=== PATIENT | male | born 1975 | race Caucasian/White ===

== ENCOUNTER 2021-08-01 21:34 | Inpatient (IN) | payer MEDICAID, SELFPAY ==
[2021-08-01 21:46] VITALS: BP 156/81; PULSE 88; RESP 15; TEMP 36.7; O2SAT 96; BMI 24.4
--- NOTE | 2021-08-01 22:10 | ED_ITS ---
HPI - Psych General Chief Complaint: Psychiatric Symptoms Stated Complaint: crisis Time Seen by Provider: 08/01/21 21:46 Source: patient and other (ED nurse) Mode of arrival: EMS Limitations: no limitations History of Present Illness HPI Narrative: 46-year-old male who presents emergency department for evaluation of suicidal ideation and anxiety. The information came from the patient and from the ED nurse who spoke to the [facility] crisis counselor. The patient told me that he was living in a hotel but then has been living in his car for the past 2 days. He states that he is not treated for anxiety but is feeling extremely anxious. He states that he is feeling suicidal without a plan. He states that the suicidal ideation is triggered by his anxiety and his homelessness and his money situation. He states that he was 22 years old he did cut his wrist when he was intoxicated otherwise he has never attempted to harm himself. He does not have a plan to harm self at this time. He does not have a plan to harm others. The patient was evaluated by [facility] as an outpatient however the exam was limited and the patient did not meet clear inpatient criteria however the crisis counselor felt that the patient should be sent to the emergency department for medical clearance and they would re-evaluated min the morning to determine what services would be available to help with his anxiety and his suicidal ideation without a plan. He denied being ill prior to coming to the emergency department. He denied fev er, chills, chest pain, shortness of breath, cough, abdominal pain, nausea, vomiting, myalgias or arthralgias. Patient states that he did receive the 2 shot Moderna COVID-19 vaccine with the 2nd shot in December of 2020. Related Data Home Medications Medication Instructions Recorded Confirmed amlodipine 10 mg tablet 1 tab PO DAILY 08/01/21 08/01/21 buspirone 30 mg tablet 1 tab PO BID 08/01/21 08/01/21 folic acid 1 mg tablet 1 tab PO DAILY 08/01/21 08/01/21 gabapentin 300 mg capsule 1 cap PO TID 08/01/21 08/01/21 hydroxyzine pamoate 50 mg capsule 1 cap PO TID 08/01/21 08/01/21 lurasidone 80 mg tablet (Latuda) 1 tab PO BEDTIME 08/01/21 08/01/21 pantoprazole 40 mg tablet,delayed 1 tab PO BID 08/01/21 08/01/21 release propranolol 10 mg tablet 1 tab PO TID 08/01/21 08/01/21 thiamine mononitrate (vit B1) 100 1 tab PO DAILY 08/01/21 08/01/21 mg tablet (Vitamin B-1 (mononitrate)) Allergies Allergy/AdvReac Type Severity Reaction Status Date / Time No Known Allergies Allergy Verified 08/01/21 21:54 Review of Systems Review of Systems: Yes all other systems are reviewed and are negative [facility], [facility] Past Medical History [facility], [facility] Narrative: Past medical history: Anxiety. Social history: Patient states that he was living in a hotel but is not homeless and is living in his car. He smokes 1/2 pack of cigarettes per day times 30 years. States that he rarely drinks alcohol. He states that over the holiday he did have a marijuana edible but usually does not use drugs. Social History Social History Advance Directives: No Advance Directives Information Provided: No Physical Exam Vital Signs: Vital Signs: Last Vital Signs Temp 98.1 F 08/01/21 21:46 Pulse 88 08/01/21 21:46 Resp 15 08/01/21 21:46 BP 156/81 H 08/01/21 21:46 Pulse Ox 96 08/01/21 21:46 BMI result Body Mass Index 24.4 Const: General: cooperative and no acute distress Orientation/consc iousness: oriented to person and oriented to place Limitations: no limitations HENMT: Head: Yes normal to inspection, Yes normocephalic and Yes atraumatic Ears: external ears normal General nose exam: Normal external nose present Face and sinus: Yes normal facial exam Mouth: Normal oral and palatal mucosa present Throat: Yes posterior oropharynx normal Eyes: General: appearance normal, both eyes and all related structures Pupils: Equal, round and reactive pupils present Neck: Neck: Yes normal visual inspection, Yes no lymphadenopathy, Yes trachea midline and Yes supple Chest: Chest palpation & inspection: normal inspection of the chest and normal palpation of entire chest wall Resp: Effort & Inspection: normal respiratory effort and able to speak in complete sentences Auscultation: clear to auscultation bilaterally Cardio: Rate: regular rate Rhythm: regular rhythm Heart sounds: S1 normal heart sound present, S2 normal heart sound present and no murmurs GI: Inspection: Yes normal to inspection Palpation (GI): Soft to palpation, nontender and no guarding Auscultation: normal bowel sounds : General: Yes no CVA tenderness Back/Spine/Pelvis: Back: no CVA tenderness Skin: General skin exam: no rashes or lesions noted Neuro: General: oriented to person and oriented to place Cranial nerves: Yes CN's II-XII intact bilaterally and Yes Equal, round and reactive pupils present Cognition (Neuro): normal cognition Motor exam (neuro): 5/5 motor strength present throughout Extrem: General: Yes normal to inspection Psych: Appearance: grossly normal Speech and movement: Normal speech and movement present Affect: normal affect Attitude: cooperative Thought process: Normal thought process present Thought content: Normal thought content present Course Course Course Narrative: 46-year-old male with a history of reported anxiety, not on medications, who states that he is suicidal without a plan and is extremely anxious. Patient states that the symptoms were triggered by a change in his social situation where he was living in a hotel and now is living in his car. States that also he is having difficulty with money. These stressors triggered the patient'sanxious admit causing him to have suicidal thoughts. I did order a CBC, CMP, drug screen urine, urinalysis, alcohol level, and a COVID-19 test. I did order Ativan 1 mg every 6 hours as needed for anxiety. 0133: Laboratory evaluation was unremarkable. Urine tox screen was negative. Alcohol level was below detectable limits. COVID-19 was negative. Physician observation started at 0133. Patient placed in physician observation because the patient needed for BHN evaluation. At the time observation was started the patient's vitals were stable, patient is alert and oriented, Neuro: nonfocal, CV RRR, Lungs clear. At the end of my shift, the patient's care was turned over to my colleague, Dr. Rosario. [facility] - Psych Lab Data Result diagrams: 08/01/21 22:31 08/01/21 22:31 Labs: Lab Results 08/01/21 08/01/21 08/01/21 Range/Units 22:25 22:25 22:25 WBC (4.8-10.8) X10*3/uL RBC (4.60-5.80) X10*6/uL Hgb (14.0-18.0) g/dl Hct (42.0-52.0) % MCV (80.0-98.0) fL MCH (27.0-33.0) pg MCHC (31.0-36.0) g/dl RDW (11.0-16.0) % Plt Count (160-400) X10*3/uL MPV (9.4-12.4) fL Immature Gran % (Auto) (0.0-0.4) % Neut % (Auto) (45-73) % Lymph % (Auto) (20-40) % [place] % (Auto) (2-11) % Eos % (Auto) (0-4) % Baso % (Auto) (0-2) % Lymph # (Auto) (1.2-4.9) X10*3/uL [place] # (Auto) (0.1-1.2) X10*3/uL Eos # (Auto) (0.0-0.4) X10*3/uL Baso # (Auto) (0.0-0.2) X10*3/uL Abs Immat Gran (auto) (0.00-0.03) X10*3/uL Absolute Neuts (auto) (2.0-8.3) x10*3/uL Absolute Nucleated RBC (0.0-0.012) X10*3/uL Nucleated RBC % (auto) (0.0-0.2) /100WBC Sodium (135-145) mmol/L Potassium (3.3-5.1) mmol/L Chloride (96-108) mmol/L Carbon Dioxide (22-29) mmol/L Anion Gap (12-20) BUN (9-16) mg/dL Creatinine (0.5-1.4) mg/dL Estim Creat Clear Calc Estimated GFR Random Glucose (60-115) mg/dL Calcium (8.4-10.2) mg/dL Urine Color YELLOW Urine Appearance CLEAR Urine pH 6.0 (5.0-8.0) Ur Specific [place] 1.020 (1.005-1.025) Urine Protein TRACE (NEG-TRACE) MG/DL Urine Glucose (UA) NEG (NEG) MG/DL Urine Ketones 5 (NEG) MG/DL Urine Blood NEG (NEG) Urine Nitrite NEG (NEG) Ur Leukocyte Esterase NEG (NEG) Urine RBC 0 (0) /HPF Urine WBC 0 (0-4) /HPF Ur Squamous Epith Cells TRACE /LPF Urine Bacteria NONE /LPF Urine Mucus TRACE /LPF Urine Opiates Screen Not Detected (Not Detect) Urine Fentanyl Screen Not Detected (Not Detect) Ur Barbiturates Screen Not Detected (Not Detect) Ur Phencyclidine Scrn Not Detected (Not Detect) Ur Amphetamines Screen Not Detected (Not Detect) U Benzodiazepines Scrn Not Detected (Not Detect) Urine Cocaine Screen Not Detected (Not Detect) U Marijuana (THC) Screen Not Detected (Not Detect) Ethyl Alcohol mg/dL COVID-19 ([facility]) Negative (Negative) COVID-19 Clin Com See Note 08/01/21 08/01/21 08/01/21 Range/Units 22:31 22:31 22:31 WBC 11.4 H (4.8-10.8) X10*3/uL RBC 5.44 (4.60-5.80) X10*6/uL Hgb 17.8 (14.0-18.0) g/dl Hct 53.2 H (42.0-52.0) % MCV 97.8 (80.0-98.0) fL MCH 32.7 (27.0-33.0) pg MCHC 33.5 (31.0-36.0) g/dl RDW 12.9 (11.0-16.0) % Plt Count 323 (160-400) X10*3/uL MPV 9.3 L (9.4-12.4) fL Immature Gran % (Auto) 0.5 H (0.0-0.4) % Neut % (Auto) 63.0 (45-73) % Lymph % (Auto) 27.0 (20-40) % [place] % (Auto) 7.4 (2-11) % Eos % (Auto) 1.7 (0-4) % Baso % (Auto) 0.4 (0-2) % Lymph # (Auto) 3.1 (1.2-4.9) X10*3/uL [place] # (Auto) 0.8 (0.1-1.2) X10*3/uL Eos # (Auto) 0.2 (0.0-0.4) X10*3/uL Baso # (Auto) 0.0 (0.0-0.2) X10*3/uL Abs Immat Gran (auto) 0.06 H (0.00-0.03) X10*3/uL Absolute Neuts (auto) 7.2 (2.0-8.3) x10*3/uL Absolute Nucleated RBC 0.000 (0.0-0.012) X10*3/uL Nucleated RBC % (auto) 0.0 (0.0-0.2) /100WBC Sodium 138 (135-145) mmol/L Potassium 4.6 (3.3-5.1) mmol/L Chloride 107 (96-108) mmol/L Carbon Dioxide 20 L (22-29) mmol/L Anion Gap 16 (12-20) BUN 14 (9-16) mg/dL Creatinine 0.85 (0.5-1.4) mg/dL Estim Creat Clear Calc 120.4 Estimated GFR > 60 Random Glucose 127 H (60-115) mg/dL Calcium 9.9 (8.4-10.2) mg/dL Urine Color Urine Appearance Urine pH (5.0-8.0) Ur Specific [place] (1.005-1.025) Urine Protein (NEG-TRACE) MG/DL Urine Glucose (UA) (NEG) MG/DL Urine Ketones (NEG) MG/DL Urine Blood (NEG) Urine Nitrite (NEG) Ur Leukocyte Esterase (NEG) Urine RBC (0) /HPF Urine WBC (0-4) /HPF Ur Squamous Epith Cells /LPF Urine Bacteria /LPF Urine Mucus /LPF Urine Opiates Screen (Not Detect) Urine Fentanyl Screen (Not Detect) Ur Barbiturates Screen (Not Detect) Ur Phencyclidine Scrn (Not Detect) Ur Amphetamines Screen (Not Detect) U Benzodiazepines Scrn (Not Detect) Urine Cocaine Screen (Not Detect) U Marijuana (THC) Screen (Not Detect) Ethyl Alcohol < 10 mg/dL COVID-19 ([facility]) (Negative) COVID-19 Clin Com Discharge Plan Discharge Clinical Impression: Anxiety, Suicidal ideation Patient Disposition: Still a Patient Prescriptions: No Action hydroxyzine pamoate 50 mg capsule 1 cap PO TID RF: 0 propranolol 10 mg tablet 1 tab PO TID RF: 0 amlodipine 10 mg tablet 1 tab PO DAILY RF: 0 pantoprazole 40 mg tablet,delayed release (DR/EC) 1 tab PO BID RF: 0 buspirone 30 mg tablet 1 tab PO BID RF: 0 gabapentin 300 mg capsule 1 cap PO TID RF: 0 folic acid 1 mg tablet 1 tab PO DAILY RF: 0 Latuda 80 mg tablet 1 tab PO BEDTIME RF: 0 thiamine mononitrate (vit B1) [Vitamin B-1 (mononitrate)] 100 mg tablet 1 tab PO DAILY RF: 0
[2021-08-01 22:41] LABS: Basophils Percent Auto 0.4 % (0-2); Eosinophils Absolute Auto 0.2 X10*3/uL (0.0-0.4); Eosinophils Percent Auto 1.7 % (0-4); Hematocrit 53.2 % (42.0-52.0); Hemoglobin 17.8 g/dl (14.0-18.0); Imm Gran Abs Auto 0.06 X10*3/uL (0.00-0.03); Imm Gran Pct Auto 0.5 % (0.0-0.4); Lymphocytes Absolute Auto 3.1 X10*3/uL (1.2-4.9); MANUAL DIFF FLAG NO; Mean Corpuscular HGB Conc 33.5 g/dl (31.0-36.0); Mean Corpuscular Hemoglobin 32.7 pg (27.0-33.0); Mean Corpuscular Volume 97.8 fL (80.0-98.0); Mean Platelet Volume 9.3 fL (9.4-12.4); Monocytes Absolute Auto 0.8 X10*3/uL (0.1-1.2); Monocytes Percent Auto 7.4 % (2-11); Neutrophils Absolute Auto 7.2 x10*3/uL (2.0-8.3); Platelet Count 323 X10*3/uL (160-400); Red Blood Count 5.44 X10*6/uL (4.60-5.80); Red Cell Distribution Width 12.9 % (11.0-16.0); White Blood Count 11.4 X10*3/uL (4.8-10.8)
[2021-08-01 22:44] LABS: Appearance Urine CLEAR; Color Urine YELLOW; Glucose Urine UA NEG (NEG); Leukocyte Esterase Urine NEG (NEG); Nitrite Urine NEG (NEG); Urine Blood NEG (NEG); Urine Ketones 5 MG/DL (NEG); Urine Protein TRACE MG/DL (NEG-TRACE)
[2021-08-01 22:55] LABS: Ethanol < 10 mg/dL
[2021-08-01 22:56] LABS: Anion Gap 16 (12-20); Blood Urea Nitrogen 14 mg/dL (9-16); Calcium 9.9 mg/dL (8.4-10.2); Carbon Dioxide 20 mmol/L (22-29); Chloride 107 mmol/L (96-108); Creatinine Clr Calc Pharmacy 120.4; Estimated Glomerular Filt Rate > 60; Glucose Random 127 mg/dL (60-115); Potassium 4.6 mmol/L (3.3-5.1); Sodium 138 mmol/L (135-145)
[2021-08-01 23:07] LABS: COVID-19 Test Negative (Negative)
[2021-08-01 23:08] LABS: Amphetamine Screen Urine Not Detected (Not Detect); Barbiturates, Urine Not Detected (Not Detect); Benzodiazepines Screen Urine Not Detected (Not Detect); Cannabinoid Screen Urine Not Detected (Not Detect); Cocaine Screen Urine Not Detected (Not Detect); Fentanyl, urine Not Detected (Not Detect); Opiate Screen Urine Not Detected (Not Detect); Phencyclidine Screen Urine Not Detected (Not Detect)
[2021-08-01 23:12] LABS: Mucus Urine TRACE /LPF; RBC Urine 0 /HPF (0); Squamous Epithelial Cell Urine TRACE /LPF; WBC Urine 0 /HPF (0-4)
[2021-08-02 03:22] VITALS: BP 132/88; PULSE 82; RESP 17; TEMP 36.6; O2SAT 96
--- NOTE | 2021-08-02 05:21 | PC.NURSE ---
Patient slept through the night, no distress observed/reported, patient communicated well with [facility] clinician, denied any psychiatric problem, patient reported his medication was stopped by his psychiatrist, his looking for help and support to get back to his life, [facility] cleared him of crises, recommended case management consult, provider and patient in agreement with plan, case management consult ordered, VSS, will continue to monitor.
[2021-08-02] MEDS: LORazepam 1 MG TABLET PO ×2 (06:16→21:37)
--- NOTE | 2021-08-02 06:30 | PC.NURSE ---
Patient deposition was changed by N, patient is now on section 12 inpatient bed search, patient and provider aware.
--- NOTE | 2021-08-02 07:10 | PC.NURSE ---
patient appears to remain asleep at present, respriations are even and unalbored patient appears in no distress
[2021-08-02 14:52] LABS: COVID-19 Test Negative (Negative)
--- NOTE | 2021-08-02 22:18 | ECG_ITS ---
Test Reason : MED CLEARANCE Blood Pressure : / mmHG Vent. Rate : 078 BPM Atrial Rate : 078 BPM P-R Int : 176 ms QRS Dur : 094 ms QT Int : 366 ms P-R-T Axes : 070 000 042 degrees QTc Int : 417 ms Normal sinus rhythm Septal infarct , age undetermined Abnormal ECG No previous ECGs available Referred By: Paco Rose Electronically Signed By:DAIN GARRISON MD
[2021-08-03 01:25] VITALS: BP 129/66; PULSE 79; TEMP 36.4; O2SAT 97
[2021-08-03 01:26] VITALS: BMI 25.2
[2021-08-03] MEDS: traZODone HCL 50 MG TABLET PO ×2 (02:20→20:58)
--- NOTE | 2021-08-03 02:37 | PC.ADMIT ---
THIS IS THE FIRST M3 ADMISSION FOR THIS 46 YEAR OLD MALE. LEGAL:CV. DX: [facility]. PATIENT WAS A REFERRAL BY N [facility]IA [facility] ER. NURSE TO NURSE AND COLLATERAL INFORMATION OBTAINED PRIOR TO ADMISSION. PATIENT REPORTS HISTORY OF PREVIOUS HOSPITALIZATIONS. IDENTIFIES SELF HAVING AN ANXIETY D/O. DENIES CURRENT SI REPORTING FEELING SAFE ON UNIT. MAJOR STRESS ARE HOMELESSNESS, RECENT CHANGE IN RELATIONSHIP STATUS AND LOSS OF JOB IN MAY. PATIENT HAS BEEN LIVING IN HIS CAR BUT NOW HAS NO MONEY FOR GAS OR FOR HOUSING. DENIES DRUG OR ALCOHOL USE. HAIR NEGATIVE. MEDICAL ISSUES R/O HTN, GERD. MEDICATION RECONCILIATION COMPLETED IN THE EMERGENCY ROOM. HAS NOT BEEN TAKING MEDICATIONS. TREATMENT PLAN INITIATED. ORIENTED TO UNIT.
[2021-08-03 08:19] VITALS: BP 119/79; PULSE 76; RESP 16; TEMP 36.4; O2SAT 98
[2021-08-03] MEDS: busPIRone HCl 10 MG TABLET 30 MG PO ×2 (08:39→20:52)
[2021-08-03] MEDS: hydrOXYzine HCL 50 MG TABLET PO (08:39)
[2021-08-03] MEDS: Omeprazole 20 MG CAPSULE.DR PO ×2 (08:40→20:52)
[2021-08-03] MEDS: Thiamine HCL 100 MG TABLET PO (08:40)
[2021-08-03] MEDS: Propranolol HCL 10 MG TABLET PO ×3 (08:40→20:52)
[2021-08-03] MEDS: Folic Acid 1 MG TABLET PO (08:40)
[2021-08-03] MEDS: amLODIPine Besylate 10 MG TABLET PO (08:41)
[2021-08-03] MEDS: LORazepam 1 MG TABLET PO ×2 (08:52→17:19)
[2021-08-03 15:10] VITALS: BP 125/78; PULSE 86; RESP 17; TEMP 36.8; O2SAT 94
--- NOTE | 2021-08-03 16:59 | P.HPPS_ITS ---
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 he had been renting a room in a house until the end of may, but he left after realizing that his housemates were drug addicts. he stayed at his GF's house for several weeks until the final week of june, when he stayed in a hotel. he was running out of money so left the hotel and started living out of his [place] [employer] [place]. he then ran out of money and gas and his anxiety spiked. he started having SI and so came to the ED. he does not feel he is clinically depressed; he feels his mood and anxiety states recently are reactive to his life circumstance, and once he has some housing and money he will feel better. he states he has been on many SSRIs and SNRIs and they do not help him. he feels the buspar does help him and he would like to continue taking it. he is not interested in other psych medication at the moment. he states that how we can help him here is to give him somewhere to think for a couple days, with heat. he states he is in need of assistance. suggests would be able to offer him advice on that topic. denies ever having been to a homeless senior living and denies any h/o homelessness. MD and pt agree to continue current medications and investigate dispo options. Medical Evaluation Reviewed: Yes PMF Narrative: denies Family History: denies Social History: see HPI for housing status. 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 Substance History: tobacco - 1 ppd cannabis - none cocaine - none alcohol - occasional denies the use of other substances of abuse Trauma History: describes volatile and unpredictable parents, denies he has PTSD but does link his childhood to his chronic severe anxiety. Diagnostics Vital Signs (24Hr): Vital Signs - 24 hr 08/03/21 01:25 08/03/21 08:19 08/03/21 15:10 Temperature 97.5 F 97.5 F 98.3 F Pulse Rate 79 76 86 Respiratory Rate 16 17 Blood Pressure 129/66 119/79 125/78 Pulse Oximetry 97 98 94 BMI result Body Mass Index 25.2 Labs Results: 08/01/21 22:31 08/01/21 22:31 Labs: Laboratory Results - last 48 hr 08/01/21 08/01/21 08/01/21 22:25 22:25 22:25 WBC RBC Hgb Hct MCV MCH MCHC RDW Plt Count MPV Immature Gran % (Auto) Neut % (Auto) Lymph % (Auto) [place] % (Auto) Eos % (Auto) Baso % (Auto) Lymph # (Auto) [place] # (Auto) Eos # (Auto) Baso # (Auto) Abs Immat Gran (auto) Absolute Neuts (auto) Absolute Nucleated RBC Nucleated RBC % (auto) Sodium Potassium Chloride Carbon Dioxide Anion Gap BUN Creatinine Estim Creat Clear Calc Estimated GFR Random Glucose Calcium Urine Color YELLOW Urine Appearance CLEAR Urine pH 6.0 Ur Specific [place] 1.020 Urine Protein TRACE Urine Glucose (UA) NEG Urine Ketones 5 Urine Blood NEG Urine Nitrite NEG Ur Leukocyte Esterase NEG Urine RBC 0 Urine WBC 0 Ur Squamous Epith Cells TRACE Urine Bacteria NONE Urine Mucus TRACE Urine Opiates Screen Not Detected Urine Fentanyl Screen Not Detected Ur Barbiturates Screen Not Detected Ur Phencyclidine Scrn Not Detected Ur Amphetamines Screen Not Detected U Benzodiazepines Scrn Not Detected Urine Cocaine Screen Not Detected U Marijuana (THC) Screen Not Detected Ethyl Alcohol COVID-19 ([facility]) Negative COVID-19 Clin Com See Note 08/01/21 08/01/21 08/01/21 22:31 22:31 22:31 WBC 11.4 H RBC 5.44 Hgb 17.8 Hct 53.2 H MCV 97.8 MCH 32.7 MCHC 33.5 RDW 12.9 Plt Count 323 MPV 9.3 L Immature Gran % (Auto) 0.5 H Neut % (Auto) 63.0 Lymph % (Auto) 27.0 [place] % (Auto) 7.4 Eos % (Auto) 1.7 Baso % (Auto) 0.4 Lymph # (Auto) 3.1 [place] # (Auto) 0.8 Eos # (Auto) 0.2 Baso # (Auto) 0.0 Abs Immat Gran (auto) 0.06 H Absolute Neuts (auto) 7.2 Absolute Nucleated RBC 0.000 Nucleated RBC % (auto) 0.0 Sodium 138 Potassium 4.6 Chloride 107 Carbon Dioxide 20 L Anion Gap 16 BUN 14 Creatinine 0.85 Estim Creat Clear Calc 120.4 Estimated GFR > 60 Random Glucose 127 H Calcium 9.9 Urine Color Urine Appearance Urine pH Ur Specific [place] Urine Protein Urine Glucose (UA) Urine Ketones Urine Blood Urine Nitrite Ur Leukocyte Esterase Urine RBC Urine WBC Ur Squamous Epith Cells Urine Bacteria Urine Mucus Urine Opiates Screen Urine Fentanyl Screen Ur Barbiturates Screen Ur Phencyclidine Scrn Ur Amphetamines Screen U Benzodiazepines Scrn Urine Cocaine Screen U Marijuana (THC) Screen Ethyl Alcohol < 10 COVID-19 ([facility]) COVID-19 Clin Com 08/02/21 14:17 WBC RBC Hgb Hct MCV MCH MCHC RDW Plt Count MPV Immature Gran % (Auto) Neut % (Auto) Lymph % (Auto) [place] % (Auto) Eos % (Auto) Baso % (Auto) Lymph # (Auto) [place] # (Auto) Eos # (Auto) Baso # (Auto) Abs Immat Gran (auto) Absolute Neuts (auto) Absolute Nucleated RBC Nucleated RBC % (auto) Sodium Potassium Chloride Carbon Dioxide Anion Gap BUN Creatinine Estim Creat Clear Calc Estimated GFR Random Glucose Calcium Urine Color Urine Appearance Urine pH Ur Specific [place] Urine Protein Urine Glucose (UA) Urine Ketones Urine Blood Urine Nitrite Ur Leukocyte Esterase Urine RBC Urine WBC Ur Squamous Epith Cells Urine Bacteria Urine Mucus Urine Opiates Screen Urine Fentanyl Screen Ur Barbiturates Screen Ur Phencyclidine Scrn Ur Amphetamines Screen U Benzodiazepines Scrn Urine Cocaine Screen U Marijuana (THC) Screen Ethyl Alcohol COVID-19 ([facility]) Negative COVID-19 Clin Com See Note Meds/Allergies Meds Home Medications Acetaminophen (Acetaminophen 325 Mg Tablet) 650 mg PO Q6H PRN PRN Reason: Headache/Pain Mild Scale (1-3) Al Hydroxide/Mg Hydroxide (Magnesium Hydrox/Alum Hydrox 30 Ml Oral.Susp) 30 ml PO Q6H PRN PRN Reason: Heartburn/Nausea Amlodipine Besylate (Amlodipine Besylate 10 Mg Tablet) 10 mg PO DAILY [facility]; Protocol Last Admin: 08/03/21 08:41 Dose: 10 mg Documented by: Buspirone HCl (Buspirone Hcl 10 Mg Tablet) 30 mg PO BID [facility] Last Admin: 08/03/21 08:39 Dose: 30 mg Documented by: Folic Acid (Folic Acid 1 Mg Tablet) 1 mg PO DAILY [facility] Last Admin: 08/03/21 08:40 Dose: 1 mg Documented by: Lorazepam (Lorazepam 1 Mg Tablet) 1 mg PO Q6H PRN PRN Reason: anxiety Last Admin: 08/03/21 08:52 Dose: 1 mg Documented by: Magnesium Hydroxide (Milk Of Magnesia 30 Ml Oral.Susp) 30 ml PO DAILY PRN PRN Reason: Constipation Omeprazole (Omeprazole 20 Mg Capsule.Dr) 20 mg PO BID [facility] Last Admin: 08/03/21 08:40 Dose: 20 mg Documented by: Propranolol HCl (Propranolol Hcl 10 Mg Tablet) 10 mg PO TID [facility]; Protocol Last Admin: 08/03/21 15:11 Dose: 10 mg Documented by: Thiamine HCl (Thiamine Hcl 100 Mg Tablet) 100 mg PO DAILY [facility] Last Admin: 08/03/21 08:40 Dose: 100 mg Documented by: Trazodone HCl (Trazodone Hcl 50 Mg Tablet) 50 mg PO BEDTIME PRN PRN Reason: Insomnia Last Admin: 08/03/21 02:20 Dose: 50 mg Documented by: Allergies Allergies Allergy/AdvReac Type Severity Reaction Status Date / Time No Known Allergies Allergy Verified 08/01/21 21:54 Mental Status Exam Mental Status Exam Narrative: appropriately dressed and groomed, cooperative, no PMA/PMR. speech nml in rate, loudness, tone. incr amount and decr latency. thoughts digressive but otherwise linear and logical. affect full range, normo-intense, non-labile. mood neutral. no SI/HI/AVH. Assessment & Plan Assessment & Plan (1) Suicidal ideation: Status: Acute Code(s): R45.851 - Suicidal ideations Assessment and Plan: resolved with admission (2) Anxiety: Status: Acute Code(s): F41.9 - Anxiety disorder, unspecified Assessment and Plan: NERIS Dx. ongoing exacerbation whilst facing homelessness. continue buspar 30 BID. declining other psychopharm. Assessment and Plan: holding environment. research services for pt. discharge likely to senior living soon. Reason for continued inpatient stay Substantial Risk for: inability to function and rapid decompensation
[2021-08-03] MEDS: Acetaminophen 325 MG TABLET 650 MG PO (19:11)
[2021-08-03 20:47] VITALS: BP 130/76; PULSE 78; RESP 16; TEMP 37.1; O2SAT 95
[2021-08-04] MEDS: LORazepam 1 MG TABLET PO ×3 (04:19→17:19)
[2021-08-04] MEDS: Thiamine HCL 100 MG TABLET PO (08:24)
[2021-08-04] MEDS: Propranolol HCL 10 MG TABLET PO ×3 (08:24→22:41)
[2021-08-04] MEDS: amLODIPine Besylate 10 MG TABLET PO (08:24)
[2021-08-04] MEDS: Acetaminophen 325 MG TABLET 650 MG PO (08:24)
[2021-08-04] MEDS: busPIRone HCl 10 MG TABLET 30 MG PO ×2 (08:24→22:40)
[2021-08-04] MEDS: Folic Acid 1 MG TABLET PO (08:24)
[2021-08-04] MEDS: Omeprazole 20 MG CAPSULE.DR PO ×2 (08:25→22:41)
[2021-08-04] MEDS: Nicotine Polacrilex 2 MG GUM 4 MG BUCCAL ×3 (09:57→18:16)
--- NOTE | 2021-08-04 14:00 | P.PNPSI_ITS ---
Subjective Subjective Date of Service: 08/04/21 Reason For Visit: Suicidal ideation Interim History: pt reports he is eating and sleeping well. mood good, no SI. states he has been in touch with his GF since being here, and his status with her is his chief concern now. he is content to continue on his current regimen of buspar. informed he will need to discharge early next week to a senior living. per staff, attended one group yesterday. dep/anx 11/05. no SI/HI/AVH. anoon in bedroom. slept well overnight. Mental Status Exam Mental Status Exam Narrative: appropriately dressed and groomed, cooperative, no PMA/PMR. speech nml in rate, loudness, tone. incr amount and decr latency. thoughts digressive but otherwise linear and logical. affect full range, normo-intense, non-labile. mood good. no SI. no HI/AVH expressed. Diagnostics Vital Signs (24Hr): Vital Signs - 24 hr 08/03/21 15:10 08/03/21 20:47 Temperature 98.3 F 98.7 F Pulse Rate 86 78 Respiratory Rate 17 16 Blood Pressure 125/78 130/76 Pulse Oximetry 94 95 BMI result Body Mass Index 25.2 Labs Results: 08/01/21 22:31 08/01/21 22:31 Labs: Laboratory Results - last 48 hr 08/02/21 14:17 COVID-19 ([facility]) Negative COVID-19 Clin Com See Note Medications Medications Current Medications Acetaminophen (Acetaminophen 325 Mg Tablet) 650 mg PO Q6H PRN PRN Reason: Headache/Pain Mild Scale (1-3) Last Admin: 08/04/21 08:24 Dose: 650 mg Documented by: Al Hydroxide/Mg Hydroxide (Magnesium Hydrox/Alum Hydrox 30 Ml Oral.Susp) 30 ml PO Q6H PRN PRN Reason: Heartburn/Nausea Amlodipine Besylate (Amlodipine Besylate 10 Mg Tablet) 10 mg PO DAILY [facility]; Pro tocol Last Admin: 08/04/21 08:24 Dose: 10 mg Documented by: Buspirone HCl (Buspirone Hcl 10 Mg Tablet) 30 mg PO BID [facility] Last Admin: 08/04/21 08:24 Dose: 30 mg Documented by: Folic Acid (Folic Acid 1 Mg Tablet) 1 mg PO DAILY [facility] Last Admin: 01/07/22 08:24 Dose: 1 mg Documented by: Lorazepam (Lorazepam 1 Mg Tablet) 1 mg PO Q6H PRN PRN Reason: anxiety Last Admin: 08/04/21 11:04 Dose: 1 mg Documented by: Magnesium Hydroxide (Milk Of Magnesia 30 Ml Oral.Susp) 30 ml PO DAILY PRN PRN Reason: Constipation Nicotine Polacrilex (Nicotine Polacrilex 2 Mg Gum) 4 mg BUCCAL Q1H PRN PRN Reason: Nicotine Cravings Last Admin: 08/04/21 13:28 Dose: 4 mg Documented by: Omeprazole (Omeprazole 20 Mg Capsule.Dr) 20 mg PO BID [facility] Last Admin: 08/04/21 08:25 Dose: 20 mg Documented by: Propranolol HCl (Propranolol Hcl 10 Mg Tablet) 10 mg PO TID [facility]; Protocol Last Admin: 08/04/21 08:24 Dose: 10 mg Documented by: Thiamine HCl (Thiamine Hcl 100 Mg Tablet) 100 mg PO DAILY [facility] Last Admin: 08/04/21 08:24 Dose: 100 mg Documented by: Trazodone HCl (Trazodone Hcl 50 Mg Tablet) 50 mg PO BEDTIME PRN PRN Reason: Insomnia Last Admin: 08/03/21 20:58 Dose: 50 mg Documented by: Allergies Allergies Allergy/AdvReac Type Severity Reaction Status Date / Time No Known Allergies Allergy Verified 08/01/21 21:54 Assessment & Plan Assessment & Plan (1) Suicidal ideation: Status: Acute Code(s): R45.851 - Suicidal ideations Assessment and Plan: resolved with admission (2) Anxiety: Status: Acute Code(s): F41.9 - Anxiety disorder, unspecified Assessment and Plan: NERIS Dx. ongoing exacerbation whilst facing homelessness. continue buspar 30 BID. declining other psychopharm. Assessment and Plan: holding environment. research services for pt. discharge likely to senior living versus GF's home early next week I spent __20____ minutes with the patient and/or on the patient floor today, greater than?50% of which was spent counseling/coordinating care. Reason for contiued inpatient stay Substantial Risk for: harm to self and rapid decompensation
[2021-08-04 15:03] VITALS: BP 138/87; PULSE 90; RESP 16
[2021-08-04 22:35] VITALS: BP 129/71; PULSE 76; RESP 20; TEMP 36.2; O2SAT 96
[2021-08-04] MEDS: traZODone HCL 50 MG TABLET PO (22:47)
[2021-08-05] MEDS: Nicotine Polacrilex 2 MG GUM 4 MG BUCCAL ×4 (07:54→20:23)
[2021-08-05] MEDS: LORazepam 1 MG TABLET PO ×3 (07:54→20:23)
[2021-08-05 08:00] VITALS: BP 142/85; PULSE 78; RESP 18; TEMP 36.3; O2SAT 99
[2021-08-05] MEDS: amLODIPine Besylate 10 MG TABLET PO (08:07)
[2021-08-05] MEDS: Omeprazole 20 MG CAPSULE.DR PO ×2 (08:07→20:23)
[2021-08-05] MEDS: busPIRone HCl 10 MG TABLET 30 MG PO ×2 (08:08→20:23)
[2021-08-05] MEDS: Propranolol HCL 10 MG TABLET PO ×2 (08:08→15:19)
[2021-08-05] MEDS: Folic Acid 1 MG TABLET PO (08:08)
[2021-08-05] MEDS: Thiamine HCL 100 MG TABLET PO (08:08)
[2021-08-05 15:10] VITALS: BP 167/96; PULSE 81; RESP 18; O2SAT 99
[2021-08-05 16:26] VITALS: BP 169/101; PULSE 82; O2SAT 100
--- NOTE | 2021-08-05 17:27 | HO.PSYCHPN ---
Subjective Subjective Date of Service: 08/05/21 Reason For Visit: Suicidal ideation Interim History: pt reports he is feeling well, he got a shave in and trimmed his nails. sleeping and eating well, mood good. i feel very positive. has not spoken with his GF today. per staff, anxious, visible. attending groups, sleeping well. pleasant calm. Mental Status Exam Mental Status Exam Narrative: appropriately dressed and groomed, cooperative, no PMA/PMR. speech nml in rate, loudness, tone. incr amount and decr latency. thoughts digressive but otherwise linear and logical. affect full range, normo-intense, non-labile. mood good. no SI. no HI/AVH expressed. Diagnostics Vital Signs (24Hr): Vital Signs - 24 hr 08/04/21 22:35 08/05/21 08:00 08/05/21 15:10 Temperature 97.1 F 97.4 F Pulse Rate 76 78 81 Respiratory Rate 20 18 18 Blood Pressure 129/71 142/85 H 167/96 H Pulse Oximetry 96 99 99 08/05/21 16:26 Temperature Pulse Rate 82 Respiratory Rate Blood Pressure 169/101 H Pulse Oximetry 100 BMI result Body Mass Index 25.2 Labs Results: 08/01/21 22:31 08/01/21 22:31 Medications Medications Current Medications Acetaminophen (Acetaminophen 325 Mg Tablet) 650 mg PO Q6H PRN PRN Reason: Headache/Pain Mild Scale (1-3) Last Admin: 08/04/21 08:24 Dose: 650 mg Documented by: Al Hydroxide/Mg Hydroxide (Magnesium Hydrox/Alum Hydrox 30 Ml Oral.Susp) 30 ml PO Q6H PRN PRN Reason: Heartburn/Nausea Amlodipine Besylate (Amlodipine Besylate 10 Mg Tablet) 10 mg PO DAILY [facility]; Protocol Last Admin: 08/05/21 08:07 Dose: 10 mg Documented by: Buspirone HCl (Buspirone Hcl 10 Mg Tablet) 30 mg PO BID [facility] Last Admin: 08/05/21 08:08 Dose: 30 mg Documented by: Folic Acid (Folic Acid 1 Mg Tablet) 1 mg PO DAILY [facility] Last Admin: 08/05/21 08:08 Dose: 1 mg Documented by: Lorazepam (Lorazepam 1 Mg Tablet) 1 mg PO Q6H PRN PRN Reason: anxiety Last Admin: 08/05/21 13:58 Dose: 1 mg Documented by: Magnesium Hydroxide (Milk Of Magnesia 30 Ml Oral.Susp) 30 ml PO DAILY PRN PRN Reason: Constipation Nicotine Polacrilex (Nicotine Polacrilex 2 Mg Gum) 4 mg BUCCAL Q1H PRN PRN Reason: Nicotine Cravings Last Admin: 08/05/21 13:58 Dose: 4 mg Documented by: Omeprazole (Omeprazole 20 Mg Capsule.Dr) 20 mg PO BID [facility] Last Admin: 08/05/21 08:07 Dose: 20 mg Documented by: Propranolol HCl (Propranolol Hcl 10 Mg Tablet) 10 mg PO TID [facility]; Protocol Last Admin: 08/05/21 15:19 Dose: 10 mg Documented by: Thiamine HCl (Thiamine Hcl 100 Mg Tablet) 100 mg PO DAILY [facility] Last Admin: 08/05/21 08:08 Dose: 100 mg Documented by: Trazodone HCl (Trazodone Hcl 50 Mg Tablet) 50 mg PO BEDTIME PRN PRN Reason: Insomnia Last Admin: 08/04/21 22:47 Dose: 50 mg Documented by: Allergies Allergies Allergy/AdvReac Type Severity Reaction Status Date / Time No Known Allergies Allergy Verified 08/01/21 21:54 Assessment & Plan Assessment & Plan (1) Suicidal ideation: Status: Acute Code(s): R45.851 - Suicidal ideations Assessment and Plan: resolved with admission (2) Anxiety: Status: Acute Code(s): F41.9 - Anxiety disorder, unspecified Assessment and Plan: NERIS Dx. ongoing exacerbation whilst facing homelessness. continue buspar 30 BID. declining other psychopharm. Assessment and Plan: holding environment. research services for pt. discharge likely to prison versus GF's home early next week I spent minutes with the patient and/or on the patient floor today, greater than?50% of which was spent counseling/coordinating care. Reason for contiued inpatient stay Substantial Risk for: harm to self
[2021-08-05 20:15] VITALS: BP 165/100; PULSE 68; RESP 20; TEMP 36.4; O2SAT 98
[2021-08-05] MEDS: traZODone HCL 50 MG TABLET PO (20:23)
[2021-08-05] MEDS: Propranolol HCL LA 80 MG CAP.SA.24H PO (20:23)
[2021-08-06 05:00] VITALS: BP 129/74; PULSE 67; RESP 17
[2021-08-06] MEDS: LORazepam 1 MG TABLET PO ×3 (05:10→17:12)
[2021-08-06] MEDS: Nicotine Polacrilex 2 MG GUM 4 MG BUCCAL ×5 (05:12→20:05)
[2021-08-06 08:31] VITALS: BP 144/77; PULSE 66; RESP 16; TEMP 36.4; O2SAT 98
[2021-08-06] MEDS: Omeprazole 20 MG CAPSULE.DR PO ×2 (08:44→20:04)
[2021-08-06] MEDS: busPIRone HCl 10 MG TABLET 30 MG PO ×2 (08:44→20:04)
[2021-08-06] MEDS: Thiamine HCL 100 MG TABLET PO (08:44)
[2021-08-06] MEDS: Folic Acid 1 MG TABLET PO (08:44)
[2021-08-06] MEDS: amLODIPine Besylate 10 MG TABLET PO (08:45)
[2021-08-06] MEDS: Propranolol HCL LA 80 MG CAP.SA.24H PO (08:45)
--- NOTE | 2021-08-06 17:02 | P.PNPSI_ITS ---
Subjective Subjective Date of Service: 08/06/21 Reason For Visit: Suicidal ideation Interim History: feeling well, no questions or complaints. MD suggested he should think hard about where he might go after discharge, which will be happening in the next couple of days. per staff, started on inderal LA, BP improved. irritable this morning, got into verbal conflict with peer. Mental Status Exam Mental Status Exam Narrative: appropriately dressed and groomed, cooperative, no PMA/PMR. speech nml in rate, loudness, tone. incr amount and decr latency. thoughts digressive but otherwise linear and logical. affect full range, normo-intense, non-labile. mood good. no SI. no HI/AVH expressed. Diagnostics Vital Signs (24Hr): Vital Signs - 24 hr 08/05/21 20:15 08/06/21 05:00 08/06/21 08:31 Temperature 97.5 F 97.6 F Pulse Rate 68 67 66 Respiratory Rate 20 17 16 Blood Pressure 165/100 H 129/74 144/77 H Pulse Oximetry 98 98 BMI result Body Mass Index 25.2 Labs Results: 08/01/21 22:31 08/01/21 22:31 Medications Medications Current Medications Acetaminophen (Acetaminophen 325 Mg Tablet) 650 mg PO Q6H PRN PRN Reason: Headache/Pain Mild Scale (1-3) Last Admin: 08/04/21 08:24 Dose: 650 mg Documented by: Al Hydroxide/Mg Hydroxide (Magnesium Hydrox/Alum Hydrox 30 Ml Oral.Susp) 30 ml PO Q6H PRN PRN Reason: Heartburn/Nausea Amlodipine Besylate (Amlodipine Besylate 10 Mg Tablet) 10 mg PO DAILY [facility]; Protocol Last Admin: 08/06/21 08:45 Dose: 10 mg Documented by: Buspirone HCl (Buspirone Hcl 10 Mg Tablet) 30 mg PO BID [facility] Last Admin: 08/06/21 08:44 Dose: 30 mg Documented by: Folic Acid (Folic Acid 1 Mg Tablet) 1 mg PO DAILY [facility] Last Admin: 08/06/21 08:44 Dose: 1 mg Documented by: Lorazepam (Lorazepam 1 Mg Tablet) 1 mg PO Q6H PRN PRN Reason: anxiety Last Admin: 08/06/21 11:01 Dose: 1 mg Documented by: Magnesium Hydroxide (Milk Of Magnesia 30 Ml Oral.Susp) 30 ml PO DAILY PRN PRN Reason: Constipation Nicotine Polacrilex (Nicotine Polacrilex 2 Mg Gum) 4 mg BUCCAL Q1H PRN PRN Reason: Nicotine Cravings Last Admin: 08/06/21 16:54 Dose: 4 mg Documented by: Omeprazole (Omeprazole 20 Mg Capsule.Dr) 20 mg PO BID [facility] Last Admin: 08/06/21 08:44 Dose: 20 mg Documented by: Propranolol HCl (Propranolol Hcl La 80 Mg Cap.Sa.24h) 80 mg PO DAILY [facility]; Protocol Last Admin: 08/06/21 08:45 Dose: 80 mg Documented by: Thiamine HCl (Thiamine Hcl 100 Mg Tablet) 100 mg PO DAILY [facility] Last Admin: 08/06/21 08:44 Dose: 100 mg Documented by: Trazodone HCl (Trazodone Hcl 50 Mg Tablet) 50 mg PO BEDTIME PRN PRN Reason: Insomnia Last Admin: 08/05/21 20:23 Dose: 50 mg Documented by: Allergies Allergies Allergy/AdvReac Type Severity Reaction Status Date / Time No Known Allergies Allergy Verified 08/01/21 21:54 Assessment & Plan Assessment & Plan (1) Suicidal ideation: Status: Acute Code(s): R45.851 - Suicidal ideations Assessment and Plan: resolved with admission (2) Anxiety: Status: Acute Code(s): F41.9 - Anxiety disorder, unspecified Assessment and Plan: NERIS Dx. ongoing exacerbation whilst facing homelessness. continue buspar 30 BID. declining other psychopharm. Assessment and Plan: holding environment. research services for pt. discharge likely to group home versus GF's home early next week I spent minutes with the patient and/or on the patient floor today, greater than?50% of which was spent counseling/coordinating care. Reason for contiued inpatient stay Substantial Risk for: rapid decompensation
[2021-08-06 20:03] VITALS: BP 123/68; PULSE 75; RESP 18; TEMP 36.8; O2SAT 96
[2021-08-06] MEDS: traZODone HCL 50 MG TABLET PO (20:05)
[2021-08-07] MEDS: Nicotine Polacrilex 2 MG GUM 4 MG BUCCAL ×3 (03:53→12:30)
[2021-08-07 08:16] VITALS: BP 143/95; PULSE 70; RESP 17; TEMP 36.8; O2SAT 97
[2021-08-07] MEDS: Propranolol HCL LA 80 MG CAP.SA.24H PO (08:30)
[2021-08-07] MEDS: busPIRone HCl 10 MG TABLET 30 MG PO (08:30)
[2021-08-07] MEDS: amLODIPine Besylate 10 MG TABLET PO (08:30)
[2021-08-07] MEDS: Thiamine HCL 100 MG TABLET PO (08:31)
[2021-08-07] MEDS: Folic Acid 1 MG TABLET PO (08:31)
[2021-08-07] MEDS: Omeprazole 20 MG CAPSULE.DR PO (08:31)
--- NOTE | 2021-08-07 11:26 | P.DS_ITS ---
DS: Providers Provider Date of Service: 08/07/21 Date of admission: 08/03/21 00:27 Primary care physician: Nonstaff Physician Consults: 08/01/21 21:57 BHN [Consult to Crisis] Stat Reason for consultation: si DS: Diagnosis Discharge Diagnosis (1) Suicidal ideation: Status: Acute (2) Anxiety: Status: Acute DS: Medications Discharge Medications Home Medications: Previous Rx's Medication Instructions Recorded amlodipine 10 mg tablet 1 tab PO DAILY 30 Days #30 tab 08/07/21 buspirone 30 mg tablet 1 tab PO BID 30 Days #60 tab 08/07/21 folic acid 1 mg tablet 1 tab PO DAILY 30 Days #30 tab 08/07/21 nicotine (polacrilex) 2 mg gum 4 mg BUCCAL Q1H PRN 30 Days #100 ea 08/07/21 pantoprazole 40 mg tablet,delayed 1 tab PO BID 30 Days #60 tab 08/07/21 release propranolol 80 mg capsule,24 80 mg PO DAILY 30 Days #30 cap 08/07/21 hr,extended release thiamine mononitrate (vit B1) 100 1 tab PO DAILY 30 Days #30 tab 08/07/21 mg tablet (Vitamin B-1 (mononitrate)) Mental Status Exam Mental Status Exam Narrative: appropriately dressed and groomed, cooperative, no PMA/PMR. speech nml in rate, loudness, tone. incr amount and decr latency. thoughts digressive but otherwise linear and logical. affect full range, normo-intense, non-labile. mood anxious. no SI/HI/AVH. Data Data Completed and Pending Completed studies during hospitalization [Text1]: 08/01/21 08/01/21 08/01/21 22:25 22:25 22:25 WBC RBC Hgb Hct MCV MCH MCHC RDW Plt Count MPV Immature Gran % (Auto) Neut % (Auto) Lymph % (Auto) [place] % (Auto) Eos % (Auto) Baso % (Auto) Lymph # (Auto) [place] # (Auto) Eos # (Auto) Baso # (Auto) Abs Immat Gran (auto) Absolute Neuts (auto) Absolute Nucleated RBC Nucleated RBC % (auto) Sodium Potassium Chloride Carbon Dioxide Anion Gap BUN Creatinine Estim Creat Clear Calc Estimated GFR Random Glucose Calcium Urine Color YELLOW Urine Appearance CLEAR Urine pH 6.0 Ur Specific [place] 1.020 Urine Protein TRACE Urine Glucose (UA) NEG Urine Ketones 5 Urine Blood NEG Urine Nitrite NEG Ur Leukocyte Esterase NEG Urine RBC 0 Urine WBC 0 Ur Squamous Epith Cells TRACE Urine Bacteria NONE Urine Mucus TRACE Urine Opiates Screen Not Detected Urine Fentanyl Screen Not Detected Ur Barbiturates Screen Not Detected Ur Phencyclidine Scrn Not Detected Ur Amphetamines Screen Not Detected U Benzodiazepines Scrn Not Detected Urine Cocaine Screen Not Detected U Marijuana (THC) Screen Not Detected Ethyl Alcohol COVID-19 ([facility]) Negative COVID-19 Clin Com See Note 08/01/21 08/01/21 08/01/21 22:31 22:31 22:31 WBC 11.4 H RBC 5.44 Hgb 17.8 Hct 53.2 H MCV 97.8 MCH 32.7 MCHC 33.5 RDW 12.9 Plt Count 323 MPV 9.3 L Immature Gran % (Auto) 0.5 H Neut % (Auto) 63.0 Lymph % (Auto) 27.0 [place] % (Auto) 7.4 Eos % (Auto) 1.7 Baso % (Auto) 0.4 Lymph # (Auto) 3.1 [place] # (Auto) 0.8 Eos # (Auto) 0.2 Baso # (Auto) 0.0 Abs Immat Gran (auto) 0.06 H Absolute Neuts (auto) 7.2 Absolute Nucleated RBC 0.000 Nucleated RBC % (auto) 0.0 Sodium 138 Potassium 4.6 Chloride 107 Carbon Dioxide 20 L Anion Gap 16 BUN 14 Creatinine 0.85 Estim Creat Clear Calc 120.4 Estimated GFR > 60 Random Glucose 127 H Calcium 9.9 Urine Color Urine Appearance Urine pH Ur Specific [place] Urine Protein Urine Glucose (UA) Urine Ketones Urine Blood Urine Nitrite Ur Leukocyte Esterase Urine RBC Urine WBC Ur Squamous Epith Cells Urine Bacteria Urine Mucus Urine Opiates Screen Urine Fentanyl Screen Ur Barbiturates Screen Ur Phencyclidine Scrn Ur Amphetamines Screen U Benzodiazepines Scrn Urine Cocaine Screen U Marijuana (THC) Screen Ethyl Alcohol < 10 COVID-19 ([facility]) COVID-19 Clin Com 08/02/21 14:17 WBC RBC Hgb Hct MCV MCH MCHC RDW Plt Count MPV Immature Gran % (Auto) Neut % (Auto) Lymph % (Auto) [place] % (Auto) Eos % (Auto) Baso % (Auto) Lymph # (Auto) [place] # (Auto) Eos # (Auto) Baso # (Auto) Abs Immat Gran (auto) Absolute Neuts (auto) Absolute Nucleated RBC Nucleated RBC % (auto) Sodium Potassium Chloride Carbon Dioxide Anion Gap BUN Creatinine Estim Creat Clear Calc Estimated GFR Random Glucose Calcium Urine Color Urine Appearance Urine pH Ur Specific [place] Urine Protein Urine Glucose (UA) Urine Ketones Urine Blood Urine Nitrite Ur Leukocyte Esterase Urine RBC Urine WBC Ur Squamous Epith Cells Urine Bacteria Urine Mucus Urine Opiates Screen Urine Fentanyl Screen Ur Barbiturates Screen Ur Phencyclidine Scrn Ur Amphetamines Screen U Benzodiazepines Scrn Urine Cocaine Screen U Marijuana (THC) Screen Ethyl Alcohol COVID-19 ([facility]) Negative COVID-19 Clin Com See Note DS: Summary Hospital Course Hospital Course: per Camilo 08/03 admission note: 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 he had been renting a room in a house until the end of may, but he left after realizing that his housemates were drug addicts.? he stayed at his GF's house for several weeks until the final week of june, when he stayed in a hotel.? he was running out of money so left the hotel and started living out of his truck [place] [employer] [place].? he then ran out of money and gas and his anxiety spiked.? he started having SI and so came to the ED.? he does not feel he is clinically depressed; he feels his mood and anxiety states recently are reactive to his life circumstance, and once he has some housing and money he will feel better.? he states he has been on many SSRIs and SNRIs and they do not help him.? he feels the buspar does help him and he would like to continue taking it.? he is not interested in other psych medication at the moment.? he states that how we can help him here is to give him somewhere to think for a couple days, with heat. ? he states he is in need of assistance. ? suggests JAMES would be able to offer him advice on that topic.? denies ever having been to a homeless halfway and denies any h/o homelessness.? MD and pt agree to continue current medications and investigate dispo options. Medical Evaluation Reviewed: Yes PMF Narrative: denies Family History: denies Social History: see HPI for housing status.? 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 Substance History: tobacco - 1 ppd cannabis - none cocaine - none alcohol - occasional denies the use of other substances of abuse Trauma History: describes volatile and unpredictable parents, denies he has PTSD but does link his childhood to his chronic severe anxiety. 08/04: pt reports he is eating and sleeping well.? mood good, no SI.? states he has been in touch with his GF since being here, and his status with her is his chief concern now.? he is content to continue on his current regimen of buspar.? informed he will need to discharge early next week to a halfway.? per staff, attended one group yesterday.? dep/anx 11/05.? no SI/HI/AVH.? anoon in bedroom.? slept well overnight. 08/05: pt reports he is feeling well, he got a shave in and trimmed his nails.? sleeping and eating well, mood good. ? i feel very positive. ? has not spoken with his GF today.? per staff, anxious, visible.? attending groups, sleeping well.? pleasant calm. 08/06: feeling well, no questions or complaints.? MD suggested he should think hard about where he might go after discharge, which will be happening in the next couple of days.? per staff, started on inderal LA, BP improved.? irritable this morning, got into verbal conflict with peer. 08/07: no change in presentation. pt seems notably unmotivated or helpless/hapless. SW found pt bed at the living room. pt discharged there. Time Spent with Patient Time attestation: Total time spent providing and/or coordinating discharge services: Discharge Plan Discharge Patient Disposition: Assisted Discharge Diagnosis: Adjustment Disorder Referrals: [facility] [Other] - 1 Week (Please follow up with [facility] (the living room) upon discharge. the [employer] will drop you off there. ) [facility] [Physician] - 1 Week (Follow up w/in one week or with PCP) Discharge Medications: New nicotine (polacrilex) 2 mg gum 4 mg buccal Q1H PRN (Reason: Nicotine Cravings) 30 Days Qty: 100 RF: 0 propranolol 80 mg Capsule,Extended Release 24 Hr 80 mg PO DAILY 30 Days Qty: 30 RF: 0 Continued amlodipine 10 mg tablet 1 tab PO DAILY 30 Days Qty: 30 RF: 0 pantoprazole 40 mg tablet,delayed release (DR/EC) 1 tab PO BID 30 Days Qty: 60 RF: 0 buspirone 30 mg tablet 1 tab PO BID 30 Days Qty: 60 RF: 0 folic acid 1 mg tablet 1 tab PO DAILY 30 Days Qty: 30 RF: 0 thiamine mononitrate (vit B1) [Vitamin B-1 (mononitrate)] 100 mg tablet 1 tab PO DAILY 30 Days Qty: 30 RF: 0 Discontinued hydroxyzine pamoate 50 mg capsule 1 cap PO TID RF: 0 propranolol 10 mg tablet 1 tab PO TID RF: 0 gabapentin 300 mg capsule 1 cap PO TID RF: 0 Latuda 80 mg tablet 1 tab PO BEDTIME RF: 0 Discharge Orders: Discharge Order (Routine); Ordered 08/07/21 Ordered By: Lex Page Diet: advance to usual diet Activity on Discharge: As tolerated Stand Alone Forms: Patient Portal Discharge page, Community Support Care Plan Goals: maintain independent living in the outpatient treatment setting Health Concerns: none Plan of Treatment: take medications as prescribed. establish a relationship with a psychiatric medications prescriber. Assessment: not at imminent risk of harm to self or others.
[2021-08-07] MEDS: LORazepam 0.5 MG TABLET PO (11:33)
--- NOTE | 2021-08-07 15:54 | PC.NURSE ---
Patient is visible in the milieu and pleasant during day today. Patient's speech is clear and coherent. Eye contact is appropriate and with in normal limits. Patient reports sleep is poor due to bad dreams last night about a situation with my brother in law. Patient declined to elaborate. Denies SI/HO/AH/VH. Reported being a little stress, but that is everyday life stuff . Patient is in agreement with discharge and instructions. Patient reports feeling safe and ready to go. Patient denies physical complaints at this time.
== END 2021-08-07 14:30 | disposition home or self-care (01) | DRG 756 ==
LOC: HO.ED 08-03 00:27 → HO.PADLT16 08-03 00:58
PROVIDERS: Physician Assistant; Admitting Provider Psychiatry & Neurology Psychiatry; Emergency Provider Emergency Medicine Emergency Medical Services; Visit Provider Psychiatry & Neurology Psychiatry
DX: F41.9 Anxiety disorder, unspecified (principal); R45.851 Suicidal ideations; F17.210 Nicotine dependence, cigarettes, uncomplicated; Z20.822 Contact with and (suspected) exposure to COVID-19; Z71.6 Tobacco abuse counseling; Z23 Encounter for immunization; Z59.02 Unsheltered homelessness; Z79.899 Other long term (current) drug therapy
CPT/HCPCS: 36415; 80048; 80307; 81001; 82077; 85025; 87635; 90686; 93005; 99285